=== PATIENT | male | born 1960 | race Caucasian/White ===

== ENCOUNTER 2016-10-06 18:03 | Emergency (ER) | payer OTHER ==
[~2016-10-06] VITALS: Ht 175.3 cm; Wt 81.8 kg
[~2016-10-06 18:03] MED LIST: HYDR1TAB PO; LAM25 PO
[2016-10-06 18:05] VITALS: BP 129/74; PULSE 84; RESP 16; O2SAT 95
[2016-10-06] MEDS ORDERED: LAMO200T51 PO (18:08)
--- NOTE | 2016-10-06 18:43 | ED.REPORT ---
HPI-Extremity Problem Lower Date of Service Oct 06, 2016 ED Provider: Herman Grewal History of Present Illness: 55yo male with L ankle pain after slipping on stair at home and rolling ankle laterally. Did not hear/feel pop. Painful to bear weight since. No other injuries. Nursing Notes Stated Complaint: ANKLE AND TOE INJURY, FALL Chief Complaint: Extremity Trauma Nursing Notes Reviewed: Yes Allergies: Coded Allergies: No Known Allergies (Unverified , 10/06/16) Scheduled Lamotrigine ER (Lamotrigine ER) 200 Mg Tab.er.24 200 MG PO DAILY General Time Seen by MD: 18:25 Chief Complaint Ankle injury left L ankle pain Hx Obtained From: Patient Onset Occurred: Just prior to arrival Symptom Duration: Since onset Caused by: Accidental, Slipped Context: Occurred at: Home injury Location: : Ankle left Quality: Sharp Severity: Current: Moderate Severity: Maximum: Moderate Associated with: Denies: "Pop" felt or heard Pertinent Negative: Pt denies other symptoms Exacerbated by: Range of motion, Movement Recent Healthcare: No recent doctor visit Similar Sx Previous: No Risk-Extremity Prob Lower Well's Criteria for DVT Well's DVT Score: 0 pts (low risk 5%) Past Medical History Past Medical History denies Past Surgical History denies Smoking History Unknown if Ever Smoker Ambulatory Status Wheelchair Review of Systems Constitutional: Denies: Chills, Fever Musculoskeletal: Reports: Joint pain Respiratory: Denies: Shortness of breath Cardiovascular: Denies: Chest pain GI: Denies: Abdominal pain Physical Exam Initial Vital Signs Vital Signs (First) Date Time Temp Pulse Resp B/P Pulse Ox O2 Delivery O2 Flow Rate FiO2 10/06/16 18:05 36.4 84 16 129/74 95 Room Air Initial VS: Vital signs normal Left Ankle: Positive: ROM reduced, Swelling present... (Moderate), Tender lat ligaments... (Calc-fib lig), Tenderness present... (Moderate), Negative: Achilles deficit, Anterior drawer test pos, Ecchymosis present, Erythema present, Joint effusion present, Neuro deficit present, Pulse post tib decreased L 5th toe TTP Respiratory / Chest: Breath sounds NL, Breath sounds = bilat, No respiratory distress Cardiovascular: Heart rate NL, Regular rhythm, Heart sounds NL Interpretation & Diagnostics Interpretation & Diagnostics: L distal fibula & L 5th toe fracture X-Ray Interpretation Xray Interpretation: PROCEDURE: X-RAY LEFT ANKLE, MINIMUM THREE VIEWS ([id number]) INDICATIONS: fall down stairs, trauma TECHNIQUE: 3 views of the ankle were acquired. COMPARISON: None. FINDINGS: Bones: There is an acute fracture of the distal fibula extending from the plafond superiorly. The fragment is laterally displaced thickness of the fibular cortex. There is lateral soft tissue swelling over the distal fragment. No fracture of the tibia is seen.. Ankle mortise is normally aligned. No suspicious bony lesions. Soft tissues: No tibiotalar joint effusion. Achilles tendon appears normal. IMPRESSION: Distal fibular oblique fracture with minimal displacement. Dictated by: Larry Grant M.D. on 10/06/2016 at 18:58 Approved by: Larry Grant M.D. on 10/06/2016 at 18:58 Study Performed: PROCEDURE: X-RAY LEFT FOOT COMPLETE, MINIMUM THREE VIEWS ([id number]) INDICATIONS: fall down stairs, trauma TECHNIQUE: 3 views of the foot were acquired. COMPARISON: None. FINDINGS: Bones: A nondisplaced transverse fracture of the distal diaphysis of the proximal phalanx of the left fifth toe is present. Soft tissues: No tibiotalar joint effusion. Achilles tendon appears normal. IMPRESSION: Fifth toe fracture. No displacement involving the fracture of the shaft of the proximal phalanx. Dictated by: Larry Grant M.D. on 10/06/2016 at 18:53 Approved by: Larry Grant M.D. on 10/06/2016 at 18:53 Re-Eval/Medical Decision Diagnosis Appears: Evident Counseled Regarding: Diagnosis, Lab results, Need for follow-up, When/why to return to ED Discharge & Departure Impression: Primary Impression: Closed fracture of left distal fibula Encounter type: initial encounter Fracture morphology: unspecified fracture morphology Qualified Code: S82.832A - Other fracture of upper and lower end of left fibula, initial encounter for closed fracture Additional Impression: Toe fracture Encounter type: initial encounter Toe: lesser toe Fracture type: closed Phalanx: proximal Fracture alignment: nondisplaced Laterality: left Qualified Code: S92.515A - Nondisplaced fracture of proximal phalanx of left lesser toe(s), initial encounter for closed fracture Disposition: Home Patient Instructions: Ankle Fracture (ED), Crutch Instructions (ED) Additional Instructions: Rest, elevation, take meds as needed. Follow up with ortho. Return to0 ER if anything worsens. Referrals: Herman Brumfield MD 1 Day follow up on ankle and toe fractures EDSupervising Provider for APC: Raheel Seth Christopher R PAC Oct 06, 2016 18:43
[2016-10-06] MEDS ORDERED: HYDROcodone-APAP 5-325 mg Tablet PO ONE (18:55)
--- NOTE | 2016-10-06 18:55 | DRSVH ---
PROCEDURE: X-RAY LEFT FOOT COMPLETE, MINIMUM THREE VIEWS ([id number]) INDICATIONS: fall down stairs, trauma TECHNIQUE: 3 views of the foot were acquired. COMPARISON: None. FINDINGS: Bones: A nondisplaced transverse fracture of the distal diaphysis of the proximal phalanx of the left fifth toe is present. Soft tissues: No tibiotalar joint effusion. Achilles tendon appears normal. IMPRESSION: Fifth toe fracture. No displacement involving the fracture of the shaft of the proximal p halanx. Dictated by: Larry Grant M.D. on 10/06/2016 at 18:53 Approved by: Larry Grant M.D. on 10/06/2016 at 18:53
--- NOTE | 2016-10-06 19:00 | DRSVH ---
PROCEDURE: X-RAY LEFT ANKLE, MINIMUM THREE VIEWS ([id number]) INDICATIONS: fall down stairs, trauma TECHNIQUE: 3 views of the ankle were acquired. COMPARISON: None. FINDINGS: Bones: There is an acute fracture of the distal fibula extending from the plafond superiorly. The fra gment is laterally displaced thickness of the fibular cortex. There is lateral soft tissue swelling o eliza the distal fragment. No fracture of the tibia is seen.. Ankle mortise is normally aligned. No s uspicious bony lesions. Soft tissues: No tibiotalar joint effusion. Achilles tendon appears normal. IMPRESSION: Distal fibular oblique fracture with minimal displacement. Dictated by: Larry Grant M.D. on 10/06/2016 at 18:58 Approved by: Larry Grant M.D. on 10/06/2016 at 18:58
[2016-10-06] MEDS ORDERED: HYDR-4003 PO (19:55)
[2016-10-06 20:18] VITALS: BP 129/74; PULSE 84; RESP 16; O2SAT 95
[2016-10-09] MEDS ORDERED: LAMO200T51 PO (11:11)
== END 2016-10-06 20:20 | disposition home or self-care (01) ==
LOC: SED 18:03
DX: S82.832A Other fracture of upper and lower end of left fibula, initial encounter for closed fracture (principal); S92.515A Nondisplaced fracture of proximal phalanx of left lesser toe(s), initial encounter for closed fracture; W10.9XXA Fall (on) (from) unspecified stairs and steps, initial encounter; Y93.89 Activity, other specified; Y92.009 Unspecified place in unspecified non-institutional (private) residence as the place of occurrence of the external cause; Y99.8 Other external cause status

== ENCOUNTER 2016-10-11 08:07 | Day surgery (SDC) | payer OTHER ==
[~2016-10-11] VITALS: Ht 175.3 cm; Wt 84.6 kg
[2016-10-11] VITALS (9 sets, daily range): BP systolic 110–148; BP diastolic 69–85; PULSE 66–78; RESP 8–18; O2SAT 93–100
[~2016-10-11 08:07] MED LIST changes: +CeFAZolin Inj 2 GM in IV Premix 1 EACH IV ONE; +HYDR-4003 PO; -HYDR1TAB PO; -LAM25 PO; +LAMO200T51 PO
[2016-10-11] MEDS ORDERED: Ondansetron 2 mg/mL 2 mL Inj ONE (08:08)
[2016-10-11] MEDS ORDERED: fentaNYL-PF 50 mCg/mL 2 mL Inj ONE (08:08)
[2016-10-11] MEDS ORDERED: Dexamethasone 4 mg/mL Inj ONE (08:08)
[2016-10-11] MEDS ORDERED: Propofol 10,000 mCg/mL 20 mL Inj ONE (08:08)
[2016-10-11] MEDS ORDERED: MetoCLOpramide 5 mg/mL 2 mL Inj ONE (08:08)
[2016-10-11] MEDS: Lactated Ringer's 1,000 ML IV SCH ×3 (08:23→13:46)
[2016-10-11] MEDS ORDERED: Bupivacaine-MPF 0.5% W/EPI 30 mL Inj INFILTRATE ONE (12:41)
[2016-10-11] MEDS ORDERED: Lactated Ringer's 1,000 ML IV SCH (12:53)
[2016-10-11] MEDS ORDERED: Lactated Ringer's 500 ML IV PRN (12:53)
--- NOTE | 2016-10-11 12:53 | PCM.HPANE ---
Patient Data Date of Service: Oct 11, 2016 (1200) Surgeon Admitting Provider: Attending Provider:Josue Cadena DPM Primary Care Physician:Valencia Vazquez MD Other Provider:Moe Guzman Anesthesia Reason for Visit Left Ankle Fracture Ht/WT & BMI Height (Feet): 5 Height (Inches): 9 Weight (Kilograms): 84.6 Body Mass Index 27.00 Allergies Coded Allergies: No Known Allergies (Unverified , 10/06/16) Past Anesthesia History Anesthesia History: Denies:: Abnormal Airway, Anesthesia Reactions, Difficult Intubation, Fam Anesthesia Reaction Diabetes History Hx Diabetes?: No MRSA MRSA: No Medications Hypertension Medication: No Home Meds Incl Beta Nael: No Active Scripts Hydrocodone-Acetaminophen 5-325 mg 1 Each Tablet1 Tablet PO QID PRN For Pain # 12 TABLET Ref 0 Prov:Herman Grewal PAC 10/06/16 Reported Medications Lamotrigine ER 200 Mg Tab.er.96471 Mg PO DAILY Ref 0 10/09/16 Discontinued Reported Medications Lamotrigine ER 200 Mg Tab.er.79045 Mg PO DAILY 10/06/16 lamoTRIgine-Expunged Drug, Do Not Renew! (LaMICtal-Expunged Drug, Do Not Renew!) 25 Mg [id number] Mg PO HS 12/12/09 Hydrocod/APAP-Expunged, Do Not Renew! (VICODIN 5/500-Expunged Drug, Do Not Renew )1 Udtab Tablet PO PRN Ref 0 11/14/09 History History of ENT Problems?: No HEENT History: Denies:: Abnormal Airway Cataracts Difficult Intubation Dysphagia Glaucoma Hearing Problem Sinus Problem TMJ Hx of Heart Problems?: No Cardiovascular History: Denies:: AICD Abdominal Aortic Aneurism Atrial Fibrillation Congestive Heart Failure Coronary Artery Disease Edema Heart Murmur Hypertension Irregular Heartbeat Pacemaker Peripheral Vascular Hx of Respiratory Problem?: No Respiratory History: Denies:: Asthma COPD Emphysema Oxygen Administration Pneumonia Tuberculosis Use of C-PAP Machine Use of Inhalers / NEBS Hx Neurologic Problems?: Yes Neurological History: Positive for:: Seizures (hx of / last seizure 3-5 years ago) Denies:: CVA Dizziness Headaches Multiple Sclerosis Parkinson's Disease TIA Hx of GI Problems?: No Gastrointestinal History: Denies:: Cirrhosis Gall Bladder Disease Gastroesphageal Reflux Heartburn Hepatitis Hiatal Hernia Liver Disease Rectal Bleeding Hx of Problems?: No Genitourinary History: Denies:: Kidney Stones Urinary Tract Infection Male Hx: Denies:: Prostate Problems Scrotal Mass Testicular Surgery Skin History: Denies:: History Skin Disorders? Pressure Ulcers Hx Musculoskeletal Problems?: Yes Musculoskeletal History: Positive for:: Musculoskeletal Trauma (left ankle current admission problem) Denies:: Back Injury Fibromyalgia Joint Replacement Myasthenia Gravis Osteoarthritis Rheumatoid Arthritis Systemic Lupus Hx of Psycho/Social Problems?: No Psycho Social History: Denies:: Anxiety Bipolar Disorder Hx Depression Suicide Attempt Hx Surgeries?: Yes (bilateral knee scopes) Hx Any Other Health Problems?: Yes Other History: Denies:: Cancer Hospitalization Thyroid Disease History Blood Transfusions: Positive for:: Accept Blood Products? Denies:: Blood Transfusions Hx Diabetes: No Hx Alcohol Use: YesAlcoholic Drinks Per Day: drink dailyHx Substance Use: No Smoking Status: Unknown if Ever Smoker Have You Smoked inLast 12 mo: No Stop/Bang P-Blood Pressure: treated: No B- Body Mass Index > 35 kg/m2: No A- Age over 50: Yes N- Neck Large Circumference: No G- Gender Male: Yes Risk Assessment Category Category 1A: Patient has history of documented sleep apnea, and HAS NOT received any narcotic, sedative or anesthesia administration during this stay. Category 1B: Patient has history of documented sleep apnea, and HAS received any narcotic , sedative or anesthesia administration during this stay Category 2: Patient has SUSPECTED Obstructive Sleep Apnea, and HAS received any narcotic , sedative or anesthesia administration during this stay. Category 3: Patient has SUSPECTED Obstructive Sleep Apnea and HAS NOT received narcotic, sedative or anesthesia administration during this stay. Category 4: Outpatient in Procedural Areas with known sleep apnea or who screen positive for High Risk via the STOP/BANG questionnaire. Exam Exam Vital Signs Vital Signs Date Time Temp Pulse Resp B/P Pulse Ox O2 Delivery O2 Flow Rate FiO2 10/11/16 08:28 36.4 78 16 148/85 98 Room Air General Appearance: Alert, Oriented X3, Cooperative, No Acute Distress HEENT/AIRWAY: MP 2 Lungs: Clear to Auscultation, Normal Air Movement Heart: Exam Unremarkable, Regular Rate/Rhythm, No Murmurs/Rubs/Gallops Meds/Labs/Diagnostics Admission Meds Current Medications Cefazolin Sodium/ Dextrose 2 gm/ Premix 50 ml @ 120 mls/hr PREOP ONCE IV Last administered on 10/11/16 12:25; Start 10/11/16 at 06:00; Stop 10/11/16 at 06:24; Status DC Lactated Ringer's (Lr) 1,000 ml @ 120 mls/hr Q8H20M IV Last administered on 12:41; Start 10/11/16 at 05:00; Stop 10/11/16 at 13:19 Bupivacaine HCl/ Epinephrine Bitart (Sensorcaine-MPF 0.5% W/EPI Inj) 30 ml STK- MED ONCE INFILTRATE Last administered on 10/11/16 12:41; Start 10/11/16 at 12: 41; Stop 10/11/16 at 12:43; Status DC Plan Impression Patient chart reviewed, patient interviewed and anesthestic plan with risks, benefits, and alternatives discussed, and informed consent obtained. NPO Status: 0615 CLEARS ASA Physical Status: ASA2 Mod Systemic Disease Anesthetic Plan: GA Bene/Risks/Altern/Consents: Yes HP Complete Prior to Induction: Yes Emerson Foley MD Oct 11, 2016 12:53
[2016-10-11] MEDS ORDERED: fentaNYL-PF 50 mCg/mL 2 mL Inj IVPUSH PRN (12:55)
[2016-10-11] MEDS ORDERED: Labetalol 5 mg/mL 4 mL Inj IV PRN (12:55)
[2016-10-11] MEDS ORDERED: Atropine 0.4 mg/mL Inj IVPUSH PRN (12:55)
[2016-10-11] MEDS ORDERED: Ondansetron 2 mg/mL 2 mL Inj IVPUSH PRN (12:55)
[2016-10-11] MEDS ORDERED: HYDROmorphone 1 mg/mL Inj IVPUSH PRN (12:55)
[2016-10-11] MEDS ORDERED: Phenylephrine 10,000 mCg/mL Inj IVPUSH PRN (12:55)
[2016-10-11] MEDS ORDERED: EPHEDrine Sulfate 50 mg/mL Inj IVPUSH PRN (12:55)
[2016-10-11] MEDS ORDERED: MetoCLOpramide 5 mg/mL 2 mL Inj IVPUSH PRN (12:55)
[2016-10-11] MEDS ORDERED: hydrALAZINE 20 mg/mL Inj IVPUSH PRN (12:55)
[2016-10-11] MEDS ORDERED: HYDROcodone-APAP 5-325 mg Tablet PO PRN (13:55)
--- NOTE | 2016-10-11 14:01 | PCM.PODPO ---
Podiatry Operative Report Date of Service: Oct 11, 2016 (1200) Date of Service Oct 11, 2016 Pre Operative Diagnosis Distal fibular fracture left lower extremity Post Operative Diagnosis Same as preoperative diagnosis Procedure Open reduction internal fixation left ankle Surgeon Surgeon: Josue Cadena DPM Assistants: None Indication for Procedure Left ankle fracture Findings Minimal displacement with rotation of the left lateral fibula Details of Procedure Patient was identified in the preoperative holding area over these and allergies were identified and thoroughly discussed. The patient was transported to the operating room and placed on the operating room table in the normal supine position. This patient was then prepped and draped in the normal aseptic technique a preoperative block consisting of 10 mL of Marcaine with epinephrine was given to the left lateral ankle. A linear incision directly overlying the lateral aspect of the fibula was made approximately 8 cm in length with a #10 blade. Once through the initial layer of skin all subcutaneous and neurovascular structures were identified and retracted out of the surgical field. The first #15 blade was used to directly incise through deep subcutaneous tissue down to bone which was reflected both medially and laterally exposing the lateral aspect of the distal fibular shaft and lateral malleolus. The spiral fracture of the distal fibula was identified and noted to be displaced approximately 2 mm laterally with some lateral rotation as well Hematogenous tissue was lightly curettaged and flushed from the fracture site. The fracture was then reduced manually and clamped with a bone clamp. A 2.7 mm fully threaded cortical screw was then inserted in normal lag fashion across the fracture site. Intraoperative C-arm guidance was utilized to verify maintained reduction of the ankle. A distal fibular locking plate was then applied to the lateral aspect of the distal fibula with utilizing intraoperative C-arm guidance and a mixture of nonlocking and locking screws were utilized to fixate the plate to the lateral fibula. Intraoperative C-arm guidance was utilized to verify optimal positioning of the distal fibular plate. This wound was then copiously flushed with large amounts of normal saline deep closure was performed in a layered type fashion utilizing number 2. 0 Vicryl subcutaneous closure was performed utilizing number 3. 0 Vicryl and skin closure was performed utilizing number 3. 0 Prolene. This patient was placed into a dressing consisting of Adaptic sterile 4 x 4 gauze Kerlix and a mildly compressive Chong type compression dressing with a posterior splint. The patient was awoken by anesthesia and transported out of the operating room. No complications occurred drainage procedure. Grafts, Implants: Implants-See Implant Record Complications There were no periprocedural complications identified. Condition Stable Anesthetic Administered: GA Catheters: None Output, Estimated Blood Loss: 20 Blood Admin during surgery: No Surgical Cast or Splint: Well-padded Short Leg Splint Surgical Specimen Removed: No Specimen sent to Pathology: No Post Operative Plan Ice and elevate left lower extremity Nonweightbearing left lower summary Keep dressing clean dry and intact Discharge to home when stable Advance diet as tolerated Contact office with any questions or concerns regarding care Follow-up in office in 1 week Josue Cadena DPM Oct 11, 2016 14:01
--- NOTE | 2016-10-11 14:59 | PCM.ANEP2 ---
Post Anesthesia Evaluation ASA/CMS Post Anesthesia VS in Patient's Normal Range?: Yes Resp Stable; Airway Patent?: Yes CV Function & Hydration Stable: Yes Mental Status Recovered?: Yes Pain control Satisfactory?: Yes N/V Control Satisfactory?: Yes Emerson Foley MD Oct 11, 2016 14:59
--- NOTE | 2016-10-11 14:59 | PCM.ANEP1 ---
Post Anesthesia Phase 1 PACU Phase 1 Assessment Date of Service: Oct 11, 2016 (1200) Vital Signs Vital Signs Date Time Temp Pulse Resp B/P Pulse Ox O2 Delivery O2 Flow Rate FiO2 10/11/16 14:20 36.6 66 16 112/74 98 Room Air 10/11/16 14:14 36.8 72 11 112/81 95 Room Air 10/11/16 14:13 76 18 110/69 93 Room Air 10/11/16 14:09 73 15 111/73 93 Room Air 10/11/16 14:00 67 13 111/70 93 Room Air 10/11/16 13:55 66 10 117/71 100 Simple Mask 10 10/11/16 13:51 36.5 66 8 119/75 100 Simple Mask 10 10/11/16 08:28 36.4 78 16 148/85 98 Room Air Anesthetic Administered: GA Level of Alertness: Awake, talking DAY's with Equal Strength: Yes Pain: No Nausea or Vomiting: No Oxygen Delivery: Room Air Lungs: Clear to Auscultation, Normal Air Movement Dermatome Level: Full Sensation Emerson Foley MD Oct 11, 2016 14:59
== END 2016-10-11 23:59 | disposition home or self-care (01) ==
LOC: SAS 08:07
PROVIDERS: ATTEND Podiatrist Foot & Ankle Surgery
DX: S82.492A Other fracture of shaft of left fibula, initial encounter for closed fracture (principal); X58.XXXA Exposure to other specified factors, initial encounter; R56.9 Unspecified convulsions; Y92.9 Unspecified place or not applicable; Y99.9 Unspecified external cause status; Y93.9 Activity, unspecified; Z79.899 Other long term (current) drug therapy